=== PATIENT | male | born 1960 | race African-American/Black ===

== ENCOUNTER 2020-09-10 11:41 | Inpatient (IN) | payer OTHER ==
[2020-09-10] MEDS ORDERED: BISMUTH SUBSALICYLATE 524 MG/30 ML UD PO PRN (14:28)
[2020-09-10] MEDS ORDERED: MAGNESIUM HYDROX 2400MG/30ML ORAL SUSPENSION 30 ML CUP PO PRN (14:28)
[2020-09-10] MEDS ORDERED: METHOCARBAMOL 500 MG TABLET PO PRN (14:28)
[2020-09-10] MEDS ORDERED: ONDANSETRON *ODT* 4 MG TABLET SL PRN (14:28)
[2020-09-10] MEDS ORDERED: IBUPROFEN 400 MG TABLET (FP) PO PRN (14:28)
[2020-09-10] MEDS ORDERED: NICOTINE POLACRILEX 2 MG GUM BUC PRN (14:28)
[2020-09-10] MEDS ORDERED: MAGNESIUM CITRATE 300 ML BOTTLE PO PRN (14:28)
[2020-09-10] MEDS ORDERED: ACETAMINOPHEN 325 MG TABLET (FP) PO PRN ×2 (14:28)
[2020-09-10] MEDS ORDERED: MENTHOL/PHENOL 1 EACH UD MM PRN (14:28)
[2020-09-10] MEDS ORDERED: chlordiazePOXIDE HCL 25 MG CAPSULE PO PRN (14:28)
[2020-09-10] MEDS ORDERED: MAG HYDROX/AL HYDROX/SIMETH 30 ML UNIT-DOSE CUP PO PRN (14:28)
[2020-09-10] MEDS ORDERED: levETIRAcetam XR 750 MG TAB PO PRN (14:36)
[2020-09-10] MEDS ORDERED: ALBUTEROL SO4 HFA INHALER IH PRN (14:58)
[2020-09-10 14:59] VITALS: BMI 23.7
[2020-09-10] MEDS: metFORMIN HCL 500 MG TABLET (FP) PO SCH (15:47)
[2020-09-10] MEDS: PRENATAL VITAMINS W/ FOLIC ACID TABLET (FP) PO SCH (15:50)
[2020-09-10 17:37] LABS: HEMATOCRIT 40.9 % (35.4-49); HEMOGLOBIN 13.8 GM/dL (11.7-16.9); MCH 33.1 pg (25.7-33.7); MCHC 33.7 g/dl (32.0-35.9); MEAN CELL VOLUME 98.3 fl (80-96); MEAN PLT VOLUME 8.4 fl (7.5-11.1); PLATELET COUNT 163 K/MM3 (134-434); POTASSIUM 3.7 mmol/L (3.5-5.1); RBC 4.16 M/mm3 (4.00-5.60); RDW 14.4 % (11.9-15.9); WHITE BLOOD COUNT 4.2 K/mm3 (4.0-10.0)
[2020-09-10 17:39] LABS: ALBUMIN 4.2 g/dl (3.4-5.0); CALCIUM 9.2 mg/dL (8.5-10.1)
[2020-09-10 17:40] LABS: BLOOD UREA NITROGEN 9.9 mg/dL (7-18)
[2020-09-10 17:41] LABS: CREATININE 1.3 mg/dL (0.55-1.3)
[2020-09-10 17:44] LABS: BILIRUBIN,TOTAL 1.9 mg/dL (0.2-1); TOT PROT 7.7 g/dl (6.4-8.2)
[2020-09-10] MEDS: chlordiazePOXIDE HCL 25 MG CAPSULE PO SCH ×2 (17:51→22:09)
[2020-09-10] MEDS ORDERED: hydrOXYzine PAMOATE 25 MG CAPSULE (FP) PO SCH (18:00)
[2020-09-10 18:40] LABS: HIV INTERPRETATION NEGATIVE (NEGATIVE)
[2020-09-10] MEDS: ATORVASTATIN CA 40 MG TABLET (FP) PO SCH (22:09)
[2020-09-10] MEDS: THIAMINE HCL 100 MG TABLET (FP) PO SCH (22:09)
[2020-09-10] MEDS: BACLOFEN 10 MG TABLET (FP) PO SCH (22:09)
[2020-09-10] MEDS: METOPROLOL TARTRATE 25 MG TABLET (FP) PO SCH (22:09)
[2020-09-10] MEDS: MAGNESIUM OXIDE 400 MG TABLET (FP) PO SCH (22:09)
[2020-09-10] MEDS: MELATONIN 5 MG TABLETS PO SCH (22:10)
[2020-09-11] MEDS: chlordiazePOXIDE HCL 25 MG CAPSULE PO SCH ×4 (05:54→22:32)
[2020-09-11] MEDS: hydrOXYzine PAMOATE 25 MG CAPSULE (FP) PO PRN (05:54)
[2020-09-11] MEDS: BACLOFEN 10 MG TABLET (FP) PO SCH ×3 (05:55→22:33)
[2020-09-11] MEDS: metFORMIN HCL 500 MG TABLET (FP) PO SCH ×2 (07:01→17:43)
[2020-09-11] MEDS: ASPIRIN 81 MG CHEWABLE TABLETS PO SCH (10:06)
[2020-09-11] MEDS: MAGNESIUM OXIDE 400 MG TABLET (FP) PO SCH ×2 (10:06→22:33)
[2020-09-11] MEDS: METOPROLOL TARTRATE 25 MG TABLET (FP) PO SCH ×2 (10:06→22:33)
[2020-09-11] MEDS: NIFEdipine E.R. 90 MG TABLET PO SCH (10:06)
[2020-09-11] MEDS: NICOTINE 21 MG/24 HOURS TOPICAL PATCH TD SCH (10:06)
[2020-09-11] MEDS: PRENATAL VITAMINS W/ FOLIC ACID TABLET (FP) PO SCH (10:06)
[2020-09-11] MEDS: SPIRONOLACTONE 25 MG TABLET PO SCH (10:06)
[2020-09-11] MEDS: FAMOTIDINE 20 MG TABLET PO SCH (10:06)
[2020-09-11] MEDS: levETIRAcetam XR 750 MG TAB PO SCH (10:07)
[2020-09-11] MEDS: MELATONIN 5 MG TABLETS PO SCH (22:32)
[2020-09-11] MEDS: THIAMINE HCL 100 MG TABLET (FP) PO SCH (22:33)
[2020-09-11] MEDS: ATORVASTATIN CA 40 MG TABLET (FP) PO SCH (22:33)
[2020-09-12] MEDS: chlordiazePOXIDE HCL 25 MG CAPSULE PO SCH ×4 (05:51→22:05)
[2020-09-12] MEDS: hydrOXYzine PAMOATE 25 MG CAPSULE (FP) PO PRN (05:52)
[2020-09-12] MEDS: BACLOFEN 10 MG TABLET (FP) PO SCH ×3 (05:52→22:05)
[2020-09-12] MEDS: metFORMIN HCL 500 MG TABLET (FP) PO SCH ×2 (07:23→17:55)
[2020-09-12 10:09] LABS: POTASSIUM 3.6 mmol/L (3.5-5.1)
[2020-09-12 10:12] LABS: ALBUMIN 3.4 g/dl (3.4-5.0); BLOOD UREA NITROGEN 17.1 mg/dL (7-18); CALCIUM 9.6 mg/dL (8.5-10.1)
[2020-09-12 10:17] LABS: TOT PROT 6.5 g/dl (6.4-8.2)
[2020-09-12] MEDS: ASPIRIN 81 MG CHEWABLE TABLETS PO SCH (11:08)
[2020-09-12] MEDS: METOPROLOL TARTRATE 25 MG TABLET (FP) PO SCH ×2 (11:08→22:05)
[2020-09-12] MEDS: SPIRONOLACTONE 25 MG TABLET PO SCH (11:08)
[2020-09-12] MEDS: MAGNESIUM OXIDE 400 MG TABLET (FP) PO SCH ×2 (11:08→22:05)
[2020-09-12] MEDS: NIFEdipine E.R. 90 MG TABLET PO SCH (11:08)
[2020-09-12] MEDS: levETIRAcetam XR 750 MG TAB PO SCH (11:08)
[2020-09-12] MEDS: FAMOTIDINE 20 MG TABLET PO SCH (11:09)
[2020-09-12] MEDS: PRENATAL VITAMINS W/ FOLIC ACID TABLET (FP) PO SCH (11:09)
[2020-09-12] MEDS: NICOTINE 21 MG/24 HOURS TOPICAL PATCH TD SCH (11:09)
[2020-09-12] MEDS: ATORVASTATIN CA 40 MG TABLET (FP) PO SCH (22:05)
[2020-09-12] MEDS: THIAMINE HCL 100 MG TABLET (FP) PO SCH (22:05)
[2020-09-12] MEDS: MELATONIN 5 MG TABLETS PO SCH (22:05)
[2020-09-13] MEDS ORDERED: chlordiazePOXIDE HCL 10 MG CAPSULE PO PRN
[2020-09-13] MEDS: BACLOFEN 10 MG TABLET (FP) PO SCH ×3 (05:49→22:30)
[2020-09-13] MEDS: chlordiazePOXIDE HCL 10 MG CAPSULE PO SCH ×4 (05:49→22:30)
[2020-09-13] MEDS ORDERED: MASKS NR ONE (05:56)
[2020-09-13] MEDS: metFORMIN HCL 500 MG TABLET (FP) PO SCH ×2 (06:07→16:56)
[2020-09-13] MEDS: PRENATAL VITAMINS W/ FOLIC ACID TABLET (FP) PO SCH (10:10)
[2020-09-13] MEDS: FAMOTIDINE 20 MG TABLET PO SCH (10:10)
[2020-09-13] MEDS: NICOTINE 21 MG/24 HOURS TOPICAL PATCH TD SCH (10:10)
[2020-09-13] MEDS: ASPIRIN 81 MG CHEWABLE TABLETS PO SCH (10:10)
[2020-09-13] MEDS: MAGNESIUM OXIDE 400 MG TABLET (FP) PO SCH ×2 (10:10→22:30)
[2020-09-13] MEDS: NIFEdipine E.R. 90 MG TABLET PO SCH (10:10)
[2020-09-13] MEDS: METOPROLOL TARTRATE 25 MG TABLET (FP) PO SCH ×2 (10:10→22:30)
[2020-09-13] MEDS: SPIRONOLACTONE 25 MG TABLET PO SCH (10:10)
[2020-09-13] MEDS: levETIRAcetam XR 750 MG TAB PO SCH (10:10)
[2020-09-13] MEDS: THIAMINE HCL 100 MG TABLET (FP) PO SCH (22:30)
[2020-09-13] MEDS: MELATONIN 5 MG TABLETS PO SCH (22:30)
[2020-09-13] MEDS: ATORVASTATIN CA 40 MG TABLET (FP) PO SCH (22:30)
[2020-09-14] MEDS: metFORMIN HCL 500 MG TABLET (FP) PO SCH ×2 (06:49→17:32)
[2020-09-14] MEDS: chlordiazePOXIDE HCL 10 MG CAPSULE PO SCH ×2 (06:49→17:33)
[2020-09-14] MEDS: BACLOFEN 10 MG TABLET (FP) PO SCH ×3 (06:49→22:03)
[2020-09-14] MEDS: METOPROLOL TARTRATE 25 MG TABLET (FP) PO SCH ×2 (10:43→22:03)
[2020-09-14] MEDS: SPIRONOLACTONE 25 MG TABLET PO SCH (10:43)
[2020-09-14] MEDS: PRENATAL VITAMINS W/ FOLIC ACID TABLET (FP) PO SCH (10:43)
[2020-09-14] MEDS: FAMOTIDINE 20 MG TABLET PO SCH (10:43)
[2020-09-14] MEDS: NIFEdipine E.R. 90 MG TABLET PO SCH (10:43)
[2020-09-14] MEDS: ASPIRIN 81 MG CHEWABLE TABLETS PO SCH (10:43)
[2020-09-14] MEDS: levETIRAcetam XR 750 MG TAB PO SCH (10:43)
[2020-09-14] MEDS: MAGNESIUM OXIDE 400 MG TABLET (FP) PO SCH ×2 (10:43→22:03)
[2020-09-14] MEDS: NICOTINE 21 MG/24 HOURS TOPICAL PATCH TD SCH (10:44)
[2020-09-14] MEDS: ATORVASTATIN CA 40 MG TABLET (FP) PO SCH (22:03)
[2020-09-14] MEDS: THIAMINE HCL 100 MG TABLET (FP) PO SCH (22:03)
[2020-09-14] MEDS: MELATONIN 5 MG TABLETS PO SCH (22:06)
[2020-09-15] MEDS ORDERED: chlordiazePOXIDE HCL 10 MG CAPSULE PO ONE (05:00)
[2020-09-15] MEDS: BACLOFEN 10 MG TABLET (FP) PO SCH (06:33)
[2020-09-15] MEDS: metFORMIN HCL 500 MG TABLET (FP) PO SCH (06:36)
[2020-09-15 09:14] VITALS: BP 147/94; PULSE 86; TEMP 97.3
[2020-09-15] MEDS: levETIRAcetam XR 750 MG TAB PO SCH (10:31)
[2020-09-15] MEDS: NICOTINE 21 MG/24 HOURS TOPICAL PATCH TD SCH (10:32)
[2020-09-15] MEDS: METOPROLOL TARTRATE 25 MG TABLET (FP) PO SCH (10:32)
[2020-09-15] MEDS: MAGNESIUM OXIDE 400 MG TABLET (FP) PO SCH (10:32)
[2020-09-15] MEDS: PRENATAL VITAMINS W/ FOLIC ACID TABLET (FP) PO SCH (10:32)
[2020-09-15] MEDS: ASPIRIN 81 MG CHEWABLE TABLETS PO SCH (10:32)
[2020-09-15] MEDS: NIFEdipine E.R. 90 MG TABLET PO SCH (10:32)
[2020-09-15] MEDS: SPIRONOLACTONE 25 MG TABLET PO SCH (10:32)
[2020-09-15] MEDS: FAMOTIDINE 20 MG TABLET PO SCH (10:32)
[2020-09-16 16:09] LABS: HGB SOLUBILITY Positive (Negative); Hgb C 0 % (0.0); Hgb F 0 % (0.0-2.0); Hgb S 41.1 % (0.0)
== END 2020-09-15 11:28 | disposition other institution (70) | DRG 775 ==
LOC: YASAS 11:41 → Y6N 14:37
PROVIDERS: ADMIT Allergy & Immunology; ATTEND Allergy & Immunology
PROC: HZ2ZZZZ Detoxification Services for Substance Abuse Treatment (ICD-10-PCS; principal; 2020-09-10)
DX: F10.230 Alcohol dependence with withdrawal, uncomplicated (principal); F12.20 Cannabis dependence, uncomplicated; F17.210 Nicotine dependence, cigarettes, uncomplicated; D57.3 Sickle-cell trait; E78.5 Hyperlipidemia, unspecified; E11.65 Type 2 diabetes mellitus with hyperglycemia; Z79.84 Long term (current) use of oral hypoglycemic drugs; I10 Essential (primary) hypertension; G40.909 Epilepsy, unspecified, not intractable, without status epilepticus; J45.909 Unspecified asthma, uncomplicated; R74.01 Elevation of levels of liver transaminase levels; A53.0 Latent syphilis, unspecified as early or late; R76.11 Nonspecific reaction to tuberculin skin test without active tuberculosis; Z86.19 Personal history of other infectious and parasitic diseases; Z99.89 Dependence on other enabling machines and devices; Z88.8 Allergy status to other drugs, medicaments and biological substances
CPT/HCPCS: 36415; 71046-TC-FY; 80053; 82962; 83021; 83735; 85027; 85660; 86593; 86780; 87389; 93005; 93010; C9803; J0475; U0003

== ENCOUNTER 2020-09-15 11:50 | Inpatient (IN) | payer OTHER ==
[2020-09-15] MEDS ORDERED: LOPERAMIDE HCL 2 MG CAPSULE PO PRN (14:39)
[2020-09-15] MEDS ORDERED: guaiFENesin 200 MG/10 ML 10 ML UNIT-DOSE CUPS PO PRN (14:39)
[2020-09-15] MEDS ORDERED: MAGNESIUM HYDROX 2400MG/30ML ORAL SUSPENSION 30 ML CUP PO PRN (14:39)
[2020-09-15] MEDS ORDERED: MENTHOL/PHENOL 1 EACH UD MM PRN (14:39)
[2020-09-15] MEDS ORDERED: MAGNESIUM CITRATE 300 ML BOTTLE PO PRN (14:39)
[2020-09-15] MEDS ORDERED: MAG HYDROX/AL HYDROX/SIMETH 30 ML UNIT-DOSE CUP PO PRN (14:39)
[2020-09-15] MEDS ORDERED: NICOTINE POLACRILEX 2 MG GUM BUC PRN ×2 (14:39→14:43)
[2020-09-15] MEDS ORDERED: P-EPHED 60MG/TRIPROLIDI 2.5MG TABLET PO PRN (14:39)
[2020-09-15] MEDS ORDERED: ALBUTEROL SO4 HFA INHALER IH PRN (14:44)
[2020-09-15] MEDS ORDERED: NITROGLYCERIN SUBLINGUAL 1/150 0.4 MG TAB SL SCH (14:45)
[2020-09-15] MEDS: metFORMIN HCL 500 MG TABLET (FP) PO SCH (16:54)
[2020-09-15] MEDS: THIAMINE HCL 100 MG TABLET (FP) PO SCH (21:40)
[2020-09-15] MEDS: METOPROLOL TARTRATE 25 MG TABLET (FP) PO SCH (21:40)
[2020-09-15] MEDS: ATORVASTATIN CA 40 MG TABLET (FP) PO SCH (21:40)
[2020-09-15] MEDS: METHYL SALICYLATE/MENTHOL OINT 30 GM TUBE TP SCH (21:40)
[2020-09-15] MEDS: MELATONIN 5 MG TABLETS PO SCH (21:40)
[2020-09-15] MEDS: BACLOFEN 10 MG TABLET (FP) PO SCH (21:40)
[2020-09-15] MEDS: hydrOXYzine PAMOATE 25 MG CAPSULE (FP) PO PRN (21:40)
[2020-09-15] MEDS: MAGNESIUM OXIDE 400 MG TABLET (FP) PO SCH (21:40)
[2020-09-16] MEDS: metFORMIN HCL 500 MG TABLET (FP) PO SCH ×2 (06:56→17:06)
[2020-09-16] MEDS: BACLOFEN 10 MG TABLET (FP) PO SCH ×3 (06:57→21:20)
[2020-09-16] MEDS: METOPROLOL TARTRATE 25 MG TABLET (FP) PO SCH ×2 (09:55→21:20)
[2020-09-16] MEDS: PRENATAL VITAMINS W/ FOLIC ACID TABLET (FP) PO SCH (09:55)
[2020-09-16] MEDS: NIFEdipine E.R. 90 MG TABLET PO SCH (09:55)
[2020-09-16] MEDS: MAGNESIUM OXIDE 400 MG TABLET (FP) PO SCH ×2 (09:55→21:21)
[2020-09-16] MEDS: ASPIRIN 81 MG CHEWABLE TABLETS PO SCH (09:55)
[2020-09-16] MEDS: FAMOTIDINE 20 MG TABLET PO SCH (09:55)
[2020-09-16] MEDS: METHYL SALICYLATE/MENTHOL OINT 30 GM TUBE TP SCH ×2 (09:56→21:20)
[2020-09-16] MEDS: levETIRAcetam XR 750 MG TAB PO SCH (09:56)
[2020-09-16] MEDS: NICOTINE 7 MG/24 HOURS TOPICAL PATCH TD SCH (09:56)
[2020-09-16] MEDS: SPIRONOLACTONE 25 MG TABLET PO SCH (09:56)
[2020-09-16] MEDS ORDERED: NICOTINE 7 MG/24 HOURS TOPICAL PATCH TD SCH (10:00)
[2020-09-16] MEDS: MELATONIN 5 MG TABLETS PO SCH (21:20)
[2020-09-16] MEDS: ATORVASTATIN CA 40 MG TABLET (FP) PO SCH (21:20)
[2020-09-16] MEDS: THIAMINE HCL 100 MG TABLET (FP) PO SCH (21:20)
[2020-09-16] MEDS: hydrOXYzine PAMOATE 25 MG CAPSULE (FP) PO PRN (21:20)
[2020-09-17] MEDS: metFORMIN HCL 500 MG TABLET (FP) PO SCH ×2 (06:37→16:43)
[2020-09-17] MEDS: BACLOFEN 10 MG TABLET (FP) PO SCH ×3 (06:37→21:37)
[2020-09-17] MEDS ORDERED: MASKS NR ONE (07:34)
[2020-09-17] MEDS: PRENATAL VITAMINS W/ FOLIC ACID TABLET (FP) PO SCH (10:17)
[2020-09-17] MEDS: NIFEdipine E.R. 90 MG TABLET PO SCH (10:17)
[2020-09-17] MEDS: ASPIRIN 81 MG CHEWABLE TABLETS PO SCH (10:17)
[2020-09-17] MEDS: MAGNESIUM OXIDE 400 MG TABLET (FP) PO SCH ×2 (10:17→21:37)
[2020-09-17] MEDS: METOPROLOL TARTRATE 25 MG TABLET (FP) PO SCH ×2 (10:17→21:37)
[2020-09-17] MEDS: levETIRAcetam XR 750 MG TAB PO SCH (10:17)
[2020-09-17] MEDS: METHYL SALICYLATE/MENTHOL OINT 30 GM TUBE TP SCH ×2 (10:18→21:38)
[2020-09-17] MEDS: FAMOTIDINE 20 MG TABLET PO SCH (10:18)
[2020-09-17] MEDS: NICOTINE 7 MG/24 HOURS TOPICAL PATCH TD SCH (10:18)
[2020-09-17] MEDS: SPIRONOLACTONE 25 MG TABLET PO SCH (10:19)
[2020-09-17] MEDS: MELATONIN 5 MG TABLETS PO SCH (21:37)
[2020-09-17] MEDS: ATORVASTATIN CA 40 MG TABLET (FP) PO SCH (21:37)
[2020-09-17] MEDS: hydrOXYzine PAMOATE 25 MG CAPSULE (FP) PO PRN (21:37)
[2020-09-17] MEDS: THIAMINE HCL 100 MG TABLET (FP) PO SCH (21:37)
[2020-09-18] MEDS: BACLOFEN 10 MG TABLET (FP) PO SCH ×3 (06:25→23:22)
[2020-09-18] MEDS: metFORMIN HCL 500 MG TABLET (FP) PO SCH ×2 (06:25→16:55)
[2020-09-18] MEDS: NICOTINE 7 MG/24 HOURS TOPICAL PATCH TD SCH (09:59)
[2020-09-18] MEDS: METOPROLOL TARTRATE 25 MG TABLET (FP) PO SCH ×2 (09:59→21:36)
[2020-09-18] MEDS: FAMOTIDINE 20 MG TABLET PO SCH (09:59)
[2020-09-18] MEDS: ASPIRIN 81 MG CHEWABLE TABLETS PO SCH (09:59)
[2020-09-18] MEDS: NIFEdipine E.R. 90 MG TABLET PO SCH (09:59)
[2020-09-18] MEDS: PRENATAL VITAMINS W/ FOLIC ACID TABLET (FP) PO SCH (09:59)
[2020-09-18] MEDS: MAGNESIUM OXIDE 400 MG TABLET (FP) PO SCH ×2 (10:00→21:36)
[2020-09-18] MEDS: levETIRAcetam XR 750 MG TAB PO SCH (10:00)
[2020-09-18] MEDS: SPIRONOLACTONE 25 MG TABLET PO SCH (10:01)
[2020-09-18] MEDS: METHYL SALICYLATE/MENTHOL OINT 30 GM TUBE TP SCH ×2 (10:01→23:21)
[2020-09-18] MEDS: THIAMINE HCL 100 MG TABLET (FP) PO SCH (21:36)
[2020-09-18] MEDS: ATORVASTATIN CA 40 MG TABLET (FP) PO SCH (21:36)
[2020-09-18] MEDS: MELATONIN 5 MG TABLETS PO SCH (21:37)
[2020-09-19] MEDS: metFORMIN HCL 500 MG TABLET (FP) PO SCH ×2 (06:16→16:59)
[2020-09-19] MEDS: BACLOFEN 10 MG TABLET (FP) PO SCH ×3 (06:16→21:16)
[2020-09-19] MEDS: NIFEdipine E.R. 90 MG TABLET PO SCH (10:27)
[2020-09-19] MEDS: ASPIRIN 81 MG CHEWABLE TABLETS PO SCH (10:27)
[2020-09-19] MEDS: METOPROLOL TARTRATE 25 MG TABLET (FP) PO SCH ×2 (10:27→21:17)
[2020-09-19] MEDS: METHYL SALICYLATE/MENTHOL OINT 30 GM TUBE TP SCH ×2 (10:28→21:17)
[2020-09-19] MEDS: levETIRAcetam XR 750 MG TAB PO SCH (10:28)
[2020-09-19] MEDS: SPIRONOLACTONE 25 MG TABLET PO SCH (10:28)
[2020-09-19] MEDS: FAMOTIDINE 20 MG TABLET PO SCH (10:30)
[2020-09-19] MEDS: PRENATAL VITAMINS W/ FOLIC ACID TABLET (FP) PO SCH (10:30)
[2020-09-19] MEDS: MAGNESIUM OXIDE 400 MG TABLET (FP) PO SCH ×2 (10:30→21:17)
[2020-09-19] MEDS: NICOTINE 7 MG/24 HOURS TOPICAL PATCH TD SCH (10:31)
[2020-09-19] MEDS: ATORVASTATIN CA 40 MG TABLET (FP) PO SCH (21:16)
[2020-09-19] MEDS: hydrOXYzine PAMOATE 25 MG CAPSULE (FP) PO PRN (21:16)
[2020-09-19] MEDS: MELATONIN 5 MG TABLETS PO SCH (21:16)
[2020-09-19] MEDS: THIAMINE HCL 100 MG TABLET (FP) PO SCH (21:16)
[2020-09-20] MEDS: metFORMIN HCL 500 MG TABLET (FP) PO SCH ×2 (06:40→16:31)
[2020-09-20] MEDS: IBUPROFEN 400 MG TABLET (FP) PO PRN (06:40)
[2020-09-20] MEDS: BACLOFEN 10 MG TABLET (FP) PO SCH ×3 (06:40→21:37)
[2020-09-20] MEDS: PRENATAL VITAMINS W/ FOLIC ACID TABLET (FP) PO SCH (09:52)
[2020-09-20] MEDS: hydrOXYzine PAMOATE 25 MG CAPSULE (FP) PO PRN ×2 (09:52→21:37)
[2020-09-20] MEDS: ASPIRIN 81 MG CHEWABLE TABLETS PO SCH (09:52)
[2020-09-20] MEDS: METOPROLOL TARTRATE 25 MG TABLET (FP) PO SCH ×2 (09:52→21:37)
[2020-09-20] MEDS: MAGNESIUM OXIDE 400 MG TABLET (FP) PO SCH ×2 (09:53→21:41)
[2020-09-20] MEDS: levETIRAcetam XR 750 MG TAB PO SCH (09:53)
[2020-09-20] MEDS: FAMOTIDINE 20 MG TABLET PO SCH (09:54)
[2020-09-20] MEDS: SPIRONOLACTONE 25 MG TABLET PO SCH (09:54)
[2020-09-20] MEDS: NICOTINE 7 MG/24 HOURS TOPICAL PATCH TD SCH (09:54)
[2020-09-20] MEDS: NIFEdipine E.R. 90 MG TABLET PO SCH (09:54)
[2020-09-20] MEDS: METHYL SALICYLATE/MENTHOL OINT 30 GM TUBE TP SCH ×2 (09:55→21:37)
[2020-09-20] MEDS: ATORVASTATIN CA 40 MG TABLET (FP) PO SCH (21:37)
[2020-09-20] MEDS: MELATONIN 5 MG TABLETS PO SCH (21:40)
[2020-09-20] MEDS: THIAMINE HCL 100 MG TABLET (FP) PO SCH (21:40)
[2020-09-21] MEDS: metFORMIN HCL 500 MG TABLET (FP) PO SCH ×2 (06:27→16:45)
[2020-09-21] MEDS: IBUPROFEN 400 MG TABLET (FP) PO PRN (06:27)
[2020-09-21] MEDS: BACLOFEN 10 MG TABLET (FP) PO SCH ×3 (06:27→21:19)
[2020-09-21] MEDS: NIFEdipine E.R. 90 MG TABLET PO SCH (09:55)
[2020-09-21] MEDS: PRENATAL VITAMINS W/ FOLIC ACID TABLET (FP) PO SCH (09:55)
[2020-09-21] MEDS: METHYL SALICYLATE/MENTHOL OINT 30 GM TUBE TP SCH ×2 (09:55→21:19)
[2020-09-21] MEDS: ASPIRIN 81 MG CHEWABLE TABLETS PO SCH (09:55)
[2020-09-21] MEDS: METOPROLOL TARTRATE 25 MG TABLET (FP) PO SCH ×2 (09:55→21:19)
[2020-09-21] MEDS: FAMOTIDINE 20 MG TABLET PO SCH (09:55)
[2020-09-21] MEDS: MAGNESIUM OXIDE 400 MG TABLET (FP) PO SCH ×2 (09:56→21:19)
[2020-09-21] MEDS: levETIRAcetam XR 750 MG TAB PO SCH (09:56)
[2020-09-21] MEDS: SPIRONOLACTONE 25 MG TABLET PO SCH (09:56)
[2020-09-21] MEDS: NICOTINE 7 MG/24 HOURS TOPICAL PATCH TD SCH (09:57)
[2020-09-21] MEDS: ATORVASTATIN CA 40 MG TABLET (FP) PO SCH (21:19)
[2020-09-21] MEDS: hydrOXYzine PAMOATE 25 MG CAPSULE (FP) PO PRN (21:19)
[2020-09-21] MEDS: THIAMINE HCL 100 MG TABLET (FP) PO SCH (21:19)
[2020-09-21] MEDS: MELATONIN 5 MG TABLETS PO SCH (21:19)
[2020-09-22] MEDS: BACLOFEN 10 MG TABLET (FP) PO SCH ×3 (06:12→21:29)
[2020-09-22] MEDS: metFORMIN HCL 500 MG TABLET (FP) PO SCH ×2 (06:12→16:34)
[2020-09-22] MEDS: SPIRONOLACTONE 25 MG TABLET PO SCH (09:07)
[2020-09-22] MEDS: ASPIRIN 81 MG CHEWABLE TABLETS PO SCH (09:07)
[2020-09-22] MEDS: METHYL SALICYLATE/MENTHOL OINT 30 GM TUBE TP SCH ×2 (09:07→21:29)
[2020-09-22] MEDS: METOPROLOL TARTRATE 25 MG TABLET (FP) PO SCH ×2 (09:08→21:29)
[2020-09-22] MEDS: FAMOTIDINE 20 MG TABLET PO SCH (09:08)
[2020-09-22] MEDS: MAGNESIUM OXIDE 400 MG TABLET (FP) PO SCH ×2 (09:08→21:29)
[2020-09-22] MEDS: NICOTINE 7 MG/24 HOURS TOPICAL PATCH TD SCH (09:08)
[2020-09-22] MEDS: levETIRAcetam XR 750 MG TAB PO SCH (09:08)
[2020-09-22] MEDS: PRENATAL VITAMINS W/ FOLIC ACID TABLET (FP) PO SCH (09:09)
[2020-09-22] MEDS: NIFEdipine E.R. 90 MG TABLET PO SCH (09:09)
[2020-09-22] MEDS: MELATONIN 5 MG TABLETS PO SCH (21:29)
[2020-09-22] MEDS: hydrOXYzine PAMOATE 25 MG CAPSULE (FP) PO PRN (21:29)
[2020-09-22] MEDS: ATORVASTATIN CA 40 MG TABLET (FP) PO SCH (21:29)
[2020-09-22] MEDS: THIAMINE HCL 100 MG TABLET (FP) PO SCH (21:29)
[2020-09-23] MEDS: metFORMIN HCL 500 MG TABLET (FP) PO SCH ×2 (06:03→16:35)
[2020-09-23] MEDS: IBUPROFEN 400 MG TABLET (FP) PO PRN (06:03)
[2020-09-23] MEDS: BACLOFEN 10 MG TABLET (FP) PO SCH (06:03)
[2020-09-23] MEDS: MAGNESIUM OXIDE 400 MG TABLET (FP) PO SCH ×2 (09:52→21:21)
[2020-09-23] MEDS: NIFEdipine E.R. 90 MG TABLET PO SCH (09:52)
[2020-09-23] MEDS: SPIRONOLACTONE 25 MG TABLET PO SCH (09:52)
[2020-09-23] MEDS: FAMOTIDINE 20 MG TABLET PO SCH (09:53)
[2020-09-23] MEDS: PRENATAL VITAMINS W/ FOLIC ACID TABLET (FP) PO SCH (09:53)
[2020-09-23] MEDS: hydrOXYzine PAMOATE 25 MG CAPSULE (FP) PO PRN ×2 (09:53→21:21)
[2020-09-23] MEDS: ASPIRIN 81 MG CHEWABLE TABLETS PO SCH (09:53)
[2020-09-23] MEDS: METHYL SALICYLATE/MENTHOL OINT 30 GM TUBE TP SCH ×2 (09:53→21:22)
[2020-09-23] MEDS: levETIRAcetam XR 750 MG TAB PO SCH (09:53)
[2020-09-23] MEDS: METOPROLOL TARTRATE 25 MG TABLET (FP) PO SCH ×2 (09:53→21:21)
[2020-09-23] MEDS: NICOTINE 7 MG/24 HOURS TOPICAL PATCH TD SCH (09:53)
[2020-09-23] MEDS: MELATONIN 5 MG TABLETS PO SCH (21:20)
[2020-09-23] MEDS: ATORVASTATIN CA 40 MG TABLET (FP) PO SCH (21:21)
[2020-09-23] MEDS: THIAMINE HCL 100 MG TABLET (FP) PO SCH (21:21)
[2020-09-24] MEDS: metFORMIN HCL 500 MG TABLET (FP) PO SCH ×2 (06:08→16:47)
[2020-09-24] MEDS: PRENATAL VITAMINS W/ FOLIC ACID TABLET (FP) PO SCH (09:54)
[2020-09-24] MEDS: ASPIRIN 81 MG CHEWABLE TABLETS PO SCH (09:54)
[2020-09-24] MEDS: MAGNESIUM OXIDE 400 MG TABLET (FP) PO SCH ×2 (09:55→21:34)
[2020-09-24] MEDS: NIFEdipine E.R. 90 MG TABLET PO SCH (09:55)
[2020-09-24] MEDS: SPIRONOLACTONE 25 MG TABLET PO SCH (09:55)
[2020-09-24] MEDS: levETIRAcetam XR 750 MG TAB PO SCH (09:55)
[2020-09-24] MEDS: FAMOTIDINE 20 MG TABLET PO SCH (09:55)
[2020-09-24] MEDS: METOPROLOL TARTRATE 25 MG TABLET (FP) PO SCH ×2 (09:55→21:34)
[2020-09-24] MEDS: NICOTINE 7 MG/24 HOURS TOPICAL PATCH TD SCH (09:56)
[2020-09-24] MEDS: BACLOFEN 10 MG TABLET (FP) PO PRN ×2 (09:56→21:34)
[2020-09-24] MEDS: METHYL SALICYLATE/MENTHOL OINT 30 GM TUBE TP SCH ×2 (09:56→21:33)
[2020-09-24] MEDS: ACETAMINOPHEN 325 MG TABLET (FP) PO PRN (09:57)
[2020-09-24] MEDS: ATORVASTATIN CA 40 MG TABLET (FP) PO SCH (21:33)
[2020-09-24] MEDS: MELATONIN 5 MG TABLETS PO SCH (21:34)
[2020-09-24] MEDS: THIAMINE HCL 100 MG TABLET (FP) PO SCH (21:34)
[2020-09-24] MEDS: hydrOXYzine PAMOATE 25 MG CAPSULE (FP) PO PRN (21:34)
[2020-09-25] MEDS: metFORMIN HCL 500 MG TABLET (FP) PO SCH ×2 (06:45→16:45)
[2020-09-25] MEDS: PRENATAL VITAMINS W/ FOLIC ACID TABLET (FP) PO SCH (09:58)
[2020-09-25] MEDS: METOPROLOL TARTRATE 25 MG TABLET (FP) PO SCH ×2 (09:59→21:42)
[2020-09-25] MEDS: levETIRAcetam XR 750 MG TAB PO SCH (09:59)
[2020-09-25] MEDS: FAMOTIDINE 20 MG TABLET PO SCH (09:59)
[2020-09-25] MEDS: ASPIRIN 81 MG CHEWABLE TABLETS PO SCH (09:59)
[2020-09-25] MEDS: MAGNESIUM OXIDE 400 MG TABLET (FP) PO SCH ×2 (09:59→21:42)
[2020-09-25] MEDS: BACLOFEN 10 MG TABLET (FP) PO PRN ×2 (09:59→21:42)
[2020-09-25] MEDS: NIFEdipine E.R. 90 MG TABLET PO SCH (09:59)
[2020-09-25] MEDS: NICOTINE 7 MG/24 HOURS TOPICAL PATCH TD SCH (10:00)
[2020-09-25] MEDS: METHYL SALICYLATE/MENTHOL OINT 30 GM TUBE TP SCH ×2 (10:00→21:42)
[2020-09-25] MEDS: SPIRONOLACTONE 25 MG TABLET PO SCH (10:00)
[2020-09-25] MEDS: ACETAMINOPHEN 325 MG TABLET (FP) PO PRN (10:01)
[2020-09-25] MEDS: MELATONIN 5 MG TABLETS PO SCH (21:42)
[2020-09-25] MEDS: hydrOXYzine PAMOATE 25 MG CAPSULE (FP) PO PRN (21:42)
[2020-09-25] MEDS: THIAMINE HCL 100 MG TABLET (FP) PO SCH (21:42)
[2020-09-25] MEDS: ATORVASTATIN CA 40 MG TABLET (FP) PO SCH (21:42)
[2020-09-26] MEDS: metFORMIN HCL 500 MG TABLET (FP) PO SCH ×2 (06:10→17:02)
[2020-09-26] MEDS: NIFEdipine E.R. 90 MG TABLET PO SCH (10:12)
[2020-09-26] MEDS: levETIRAcetam XR 750 MG TAB PO SCH (10:12)
[2020-09-26] MEDS: PRENATAL VITAMINS W/ FOLIC ACID TABLET (FP) PO SCH (10:12)
[2020-09-26] MEDS: BACLOFEN 10 MG TABLET (FP) PO PRN ×2 (10:12→21:34)
[2020-09-26] MEDS: METHYL SALICYLATE/MENTHOL OINT 30 GM TUBE TP SCH ×2 (10:12→21:34)
[2020-09-26] MEDS: ASPIRIN 81 MG CHEWABLE TABLETS PO SCH (10:12)
[2020-09-26] MEDS: METOPROLOL TARTRATE 25 MG TABLET (FP) PO SCH ×2 (10:12→21:34)
[2020-09-26] MEDS: SPIRONOLACTONE 25 MG TABLET PO SCH (10:13)
[2020-09-26] MEDS: FAMOTIDINE 20 MG TABLET PO SCH (10:13)
[2020-09-26] MEDS: NICOTINE 7 MG/24 HOURS TOPICAL PATCH TD SCH (10:13)
[2020-09-26] MEDS: MAGNESIUM OXIDE 400 MG TABLET (FP) PO SCH ×2 (10:13→21:34)
[2020-09-26] MEDS: IBUPROFEN 400 MG TABLET (FP) PO PRN (10:14)
[2020-09-26] MEDS: THIAMINE HCL 100 MG TABLET (FP) PO SCH (21:34)
[2020-09-26] MEDS: hydrOXYzine PAMOATE 25 MG CAPSULE (FP) PO PRN (21:34)
[2020-09-26] MEDS: MELATONIN 5 MG TABLETS PO SCH (21:34)
[2020-09-26] MEDS: ATORVASTATIN CA 40 MG TABLET (FP) PO SCH (21:34)
[2020-09-27] MEDS: metFORMIN HCL 500 MG TABLET (FP) PO SCH ×2 (07:05→16:37)
[2020-09-27] MEDS: ACETAMINOPHEN 325 MG TABLET (FP) PO PRN (07:07)
[2020-09-27] MEDS: BACLOFEN 10 MG TABLET (FP) PO PRN (07:08)
[2020-09-27] MEDS: METHYL SALICYLATE/MENTHOL OINT 30 GM TUBE TP SCH ×2 (09:47→21:26)
[2020-09-27] MEDS: METOPROLOL TARTRATE 25 MG TABLET (FP) PO SCH ×2 (09:47→21:25)
[2020-09-27] MEDS: hydrOXYzine PAMOATE 25 MG CAPSULE (FP) PO PRN ×2 (09:47→21:25)
[2020-09-27] MEDS: NIFEdipine E.R. 90 MG TABLET PO SCH (09:47)
[2020-09-27] MEDS: ASPIRIN 81 MG CHEWABLE TABLETS PO SCH (09:47)
[2020-09-27] MEDS: PRENATAL VITAMINS W/ FOLIC ACID TABLET (FP) PO SCH (09:47)
[2020-09-27] MEDS: levETIRAcetam XR 750 MG TAB PO SCH (09:48)
[2020-09-27] MEDS: MAGNESIUM OXIDE 400 MG TABLET (FP) PO SCH ×2 (09:49→21:24)
[2020-09-27] MEDS: SPIRONOLACTONE 25 MG TABLET PO SCH (09:49)
[2020-09-27] MEDS: FAMOTIDINE 20 MG TABLET PO SCH (09:50)
[2020-09-27] MEDS: NICOTINE 7 MG/24 HOURS TOPICAL PATCH TD SCH (09:50)
[2020-09-27] MEDS: IBUPROFEN 400 MG TABLET (FP) PO PRN (16:38)
[2020-09-27] MEDS: THIAMINE HCL 100 MG TABLET (FP) PO SCH (21:24)
[2020-09-27] MEDS: MELATONIN 5 MG TABLETS PO SCH (21:24)
[2020-09-27] MEDS: ATORVASTATIN CA 40 MG TABLET (FP) PO SCH (21:25)
[2020-09-28] MEDS: metFORMIN HCL 500 MG TABLET (FP) PO SCH ×2 (06:35→16:38)
[2020-09-28] MEDS: NIFEdipine E.R. 90 MG TABLET PO SCH (09:49)
[2020-09-28] MEDS: hydrOXYzine PAMOATE 25 MG CAPSULE (FP) PO PRN ×2 (09:49→21:47)
[2020-09-28] MEDS: ASPIRIN 81 MG CHEWABLE TABLETS PO SCH (09:49)
[2020-09-28] MEDS: METOPROLOL TARTRATE 25 MG TABLET (FP) PO SCH ×2 (09:49→21:46)
[2020-09-28] MEDS: PRENATAL VITAMINS W/ FOLIC ACID TABLET (FP) PO SCH (09:49)
[2020-09-28] MEDS: MAGNESIUM OXIDE 400 MG TABLET (FP) PO SCH ×2 (09:50→21:48)
[2020-09-28] MEDS: SPIRONOLACTONE 25 MG TABLET PO SCH (09:50)
[2020-09-28] MEDS: METHYL SALICYLATE/MENTHOL OINT 30 GM TUBE TP SCH ×2 (09:51→21:48)
[2020-09-28] MEDS: levETIRAcetam XR 750 MG TAB PO SCH (09:51)
[2020-09-28] MEDS: FAMOTIDINE 20 MG TABLET PO SCH (09:52)
[2020-09-28] MEDS: ACETAMINOPHEN 325 MG TABLET (FP) PO PRN (09:52)
[2020-09-28] MEDS: NICOTINE 7 MG/24 HOURS TOPICAL PATCH TD SCH (09:52)
[2020-09-28] MEDS ORDERED: ATORVASTATIN CA 20 MG TABLET (FP) ONE (19:18)
[2020-09-28] MEDS: ATORVASTATIN CA 40 MG TABLET (FP) PO SCH (21:46)
[2020-09-28] MEDS: MELATONIN 5 MG TABLETS PO SCH (21:47)
[2020-09-28] MEDS: THIAMINE HCL 100 MG TABLET (FP) PO SCH (21:48)
[2020-09-29] MEDS: metFORMIN HCL 500 MG TABLET (FP) PO SCH (06:12)
[2020-09-29] MEDS: ACETAMINOPHEN 325 MG TABLET (FP) PO PRN (06:14)
[2020-09-29] MEDS: BACLOFEN 10 MG TABLET (FP) PO PRN (06:14)
[2020-09-29 06:56] VITALS: TEMP 97.1
[2020-09-29 08:58] VITALS: BP 140/71; PULSE 73
[2020-09-29] MEDS: NIFEdipine E.R. 90 MG TABLET PO SCH (10:05)
[2020-09-29] MEDS: METOPROLOL TARTRATE 25 MG TABLET (FP) PO SCH (10:05)
[2020-09-29] MEDS: MAGNESIUM OXIDE 400 MG TABLET (FP) PO SCH (10:05)
[2020-09-29] MEDS: PRENATAL VITAMINS W/ FOLIC ACID TABLET (FP) PO SCH (10:05)
[2020-09-29] MEDS: ASPIRIN 81 MG CHEWABLE TABLETS PO SCH (10:06)
[2020-09-29] MEDS: SPIRONOLACTONE 25 MG TABLET PO SCH (10:06)
[2020-09-29] MEDS: NICOTINE 7 MG/24 HOURS TOPICAL PATCH TD SCH (10:06)
[2020-09-29] MEDS: METHYL SALICYLATE/MENTHOL OINT 30 GM TUBE TP SCH (10:06)
[2020-09-29] MEDS: levETIRAcetam XR 750 MG TAB PO SCH (10:06)
[2020-09-29] MEDS: hydrOXYzine PAMOATE 25 MG CAPSULE (FP) PO PRN (10:06)
[2020-09-29] MEDS: FAMOTIDINE 20 MG TABLET PO SCH (10:06)
== END 2020-09-29 10:55 | disposition home or self-care (01) | DRG 772 ==
LOC: YASAS 11:50 → Y5N 11:51
PROVIDERS: ADMIT Allergy & Immunology; ATTEND Allergy & Immunology
PROC: HZ42ZZZ Group Counseling for Substance Abuse Treatment, Cognitive-Behavioral (ICD-10-PCS; principal; 2020-09-15)
DX: F10.20 Alcohol dependence, uncomplicated (principal); F12.20 Cannabis dependence, uncomplicated; I10 Essential (primary) hypertension; E78.00 Pure hypercholesterolemia, unspecified; E11.9 Type 2 diabetes mellitus without complications; J45.909 Unspecified asthma, uncomplicated; M17.11 Unilateral primary osteoarthritis, right knee; G40.909 Epilepsy, unspecified, not intractable, without status epilepticus; R26.2 Difficulty in walking, not elsewhere classified; Z99.89 Dependence on other enabling machines and devices; Z79.84 Long term (current) use of oral hypoglycemic drugs
CPT/HCPCS: 82962; J0475